=== PATIENT | female | born 1955 | race Two or more races ===

== ENCOUNTER 2017-06-01 06:15 | Day surgery (SDC) | payer OTHER ==
[~2017-06-01 06:15] MED LIST: LIPITOR20 MG; LOTREL 5-10 MG1 CAP; OMEPRAZOLE20 M1
== END 2017-06-01 11:50 | disposition home or self-care (01) ==
LOC: AMB-ENDOS 06:15
DX: K29.50 Unspecified chronic gastritis without bleeding (principal); K64.1 Second degree hemorrhoids; K57.30 Diverticulosis of large intestine without perforation or abscess without bleeding; E78.00 Pure hypercholesterolemia, unspecified; I10 Essential (primary) hypertension; K62.3 Rectal prolapse

== ENCOUNTER 2019-06-23 11:25 | Outpatient (CLI) | payer OTHER | END 2019-06-23 11:32 | disposition home or self-care (01) | LOC: SONOGRAMA 11:25 | DX: E04.1 Nontoxic single thyroid nodule (principal) ==

== ENCOUNTER 2021-04-28 11:15 | Inpatient (IN) | payer OTHER ==
[~2021-04-28] VITALS: Ht 160 cm; Wt 61.2 kg
[2021-04-28] MEDS ORDERED: LOTREL 5-10 MG1 CAP PO (13:37)
[2021-04-28] MEDS ORDERED: SIMVAST PO (13:38)
[2021-04-28] MEDS ORDERED: PROTONIX40 MG PO (13:38)
[2021-04-28] MEDS ORDERED: PEPCID AC20 MG PO (13:38)
[2021-04-28] MEDS ORDERED: TRICOR145 MG PO (13:39)
[2021-05-03] MEDS ORDERED: DORZOLAMIDE-TIM10 ML (11:09)
[2021-05-03] MEDS ORDERED: LATANOPROST2.5 ML (11:09)
[2021-05-03] MEDS ORDERED: SIMVASTATIN40 MG (11:09)
[2021-05-03] MEDS ORDERED: DOCUSATE CALCI240 MG (11:09)
[2021-05-03] MEDS ORDERED: ZANAFLEX2 MG (11:09)
[2021-05-03] MEDS ORDERED: AMLODIPINE BESYL5 MG (11:09)
== END 2021-05-06 09:03 | disposition home or self-care (01) | DRG 330 ==
LOC: SURH 05-03 07:00 → O/R 05-03 07:40 → SURH 05-03 11:15
PROVIDERS: ADMIT Colon & Rectal Surgery; ATTEND Colon & Rectal Surgery
PROC: 0DBP4ZZ Excision of Rectum, Percutaneous Endoscopic Approach (ICD-10-PCS; 2021-05-03)
PROC: 0DTN4ZZ Resection of Sigmoid Colon, Percutaneous Endoscopic Approach (ICD-10-PCS; principal; 2021-05-03 07:00)
DX: K57.30 Diverticulosis of large intestine without perforation or abscess without bleeding (principal); K92.1 Melena; K51.40 Inflammatory polyps of colon without complications; J45.20 Mild intermittent asthma, uncomplicated; I11.9 Hypertensive heart disease without heart failure; I12.9 Hypertensive chronic kidney disease with stage 1 through stage 4 chronic kidney disease, or unspecified chronic kidney disease; N18.30 Chronic kidney disease, stage 3 unspecified

== ENCOUNTER 2021-06-24 08:45 | Outpatient (CLI) | payer OTHER ==
[~2021-06-24 08:45] MED LIST changes: +AMLODIPINE BESYL5 MG; +DOCUSATE CALCI240 MG; +DORZOLAMIDE-TIM10 ML; +LATANOPROST2.5 ML; +LOTREL 5-10 MG1 CAP PO; +PEPCID AC20 MG PO; +PROTONIX40 MG PO; +SIMVAST PO; +SIMVASTATIN40 MG; +TRICOR145 MG PO; +ZANAFLEX2 MG
== END 2021-06-24 08:48 | disposition home or self-care (01) ==
LOC: LAB 08:45
PROVIDERS: ATTEND Colon & Rectal Surgery
DX: K57.32 Diverticulitis of large intestine without perforation or abscess without bleeding (principal)

== ENCOUNTER 2021-06-27 07:12 | Outpatient (CLI) | payer OTHER | END 2021-06-27 07:26 | disposition home or self-care (01) | LOC: TOM 07:12 | PROVIDERS: ATTEND Colon & Rectal Surgery | DX: K57.32 Diverticulitis of large intestine without perforation or abscess without bleeding (principal) | CPT/HCPCS: 74177; Q9965 ==

== ENCOUNTER 2021-07-01 12:52 | Inpatient (IN) | payer OTHER ==
[~2021-07-01] VITALS: Ht 157.5 cm; Wt 56.7 kg
[2021-07-01] MEDS ORDERED: METRONIDAZOLE500 MG PO (13:49)
[2021-07-01] MEDS ORDERED: CIPROFLOXACIN500 MG PO (13:49)
--- NOTE | 2021-07-01 13:49 | NUR ---
PTE REFIERE QUE FUE OPERADA POR EL DR, TOUS DE DIVERTICULOS Y DESDE ENTONCE MCKEON TENIDO MUCHO DOLOR EN EL AREA DE LA OPERACION ,PTE LE NOTIFICA A EL DR, TOUS DE LOS MORGAN Y EL MEDICO LE REFIERE QUE VINIERA A LA SANJUANA DE EMERGENCIA PARA TRATARLA.
--- NOTE | 2021-07-01 16:17 | NUR ---
EVALUA PTE. SE EDUCA A PTE SOBRE [place] MEDICO LA CUAL REFIERE COMPRENDER. SE COLECTAN MUESTRAS DE LABORATORIO BAJO MEDIDAS ASEPTICAS. PTE MANEJADA POR .
== END 2021-07-10 15:06 | disposition home or self-care (01) | DRG 372 ==
LOC: ER 12:52 → SURG 16:46 → SURH 16:46
PROVIDERS: ADMIT Internal Medicine Geriatric Medicine; ATTEND Internal Medicine Geriatric Medicine
PROC: 02HV33Z Insertion of Infusion Device into Superior Vena Cava, Percutaneous Approach (ICD-10-PCS; 2021-07-02)
PROC: BW21YZZ Computerized Tomography (CT Scan) of Abdomen and Pelvis using Other Contrast (ICD-10-PCS; principal; 2021-07-03)
DX: A04.72 Enterocolitis due to Clostridium difficile, not specified as recurrent (principal); K51.30 Ulcerative (chronic) rectosigmoiditis without complications; K59.09 Other constipation; R10.9 Unspecified abdominal pain; I10 Essential (primary) hypertension; I12.9 Hypertensive chronic kidney disease with stage 1 through stage 4 chronic kidney disease, or unspecified chronic kidney disease; N18.30 Chronic kidney disease, stage 3 unspecified

== ENCOUNTER 2021-08-10 10:59 | Emergency (ER) | payer OTHER ==
[~2021-08-10] VITALS: Ht 160 cm; Wt 54.4 kg
[~2021-08-10 10:59] MED LIST changes: +CIPROFLOXACIN500 MG PO; +METRONIDAZOLE500 MG PO
[2021-08-10] MEDS ORDERED: BENTYL10 MG/1 ML IM (11:41)
== END 2021-08-10 18:37 | disposition home or self-care (01) ==
LOC: ER 10:59
DX: R10.84 Generalized abdominal pain (principal); K59.00 Constipation, unspecified; Z98.890 Other specified postprocedural states; I10 Essential (primary) hypertension; Z88.0 Allergy status to penicillin; Z88.1 Allergy status to other antibiotic agents; Z88.8 Allergy status to other drugs, medicaments and biological substances

== ENCOUNTER 2021-09-20 05:38 | Day surgery (SDC) | payer OTHER ==
[~2021-09-20 05:38] MED LIST changes: +BENTYL10 MG/1 ML IM
== END 2021-09-20 09:30 | disposition home or self-care (01) ==
LOC: AMB-ENDOS 05:38
PROVIDERS: ATTEND Colon & Rectal Surgery
DX: K52.89 Other specified noninfective gastroenteritis and colitis (principal); Z20.822 Contact with and (suspected) exposure to COVID-19; K57.30 Diverticulosis of large intestine without perforation or abscess without bleeding; I11.9 Hypertensive heart disease without heart failure; J45.909 Unspecified asthma, uncomplicated; N18.30 Chronic kidney disease, stage 3 unspecified; K62.89 Other specified diseases of anus and rectum; K64.0 First degree hemorrhoids

== ENCOUNTER 2022-03-19 16:57 | Emergency (ER) | payer OTHER ==
[~2022-03-19] VITALS: Ht 160 cm; Wt 54.4 kg
== END 2022-03-20 01:07 | disposition home or self-care (01) ==
LOC: ER 16:57
DX: K52.9 Noninfective gastroenteritis and colitis, unspecified (principal); I10 Essential (primary) hypertension; Z88.0 Allergy status to penicillin; Z88.8 Allergy status to other drugs, medicaments and biological substances

== ENCOUNTER 2022-08-16 05:39 | Day surgery (SDC) | payer OTHER | END 2022-08-16 11:10 | disposition home or self-care (01) | LOC: AMB-ENDOS 05:39 | PROVIDERS: ATTEND Colon & Rectal Surgery | DX: K62.4 Stenosis of anus and rectum (principal); K57.32 Diverticulitis of large intestine without perforation or abscess without bleeding; K64.1 Second degree hemorrhoids; K92.1 Melena; Z88.0 Allergy status to penicillin; Z88.8 Allergy status to other drugs, medicaments and biological substances; Z20.822 Contact with and (suspected) exposure to COVID-19 ==

== ENCOUNTER 2022-08-18 08:24 | Inpatient (IN) | payer OTHER ==
[~2022-08-18] VITALS: Ht 160 cm; Wt 55.3 kg
[2022-09-08] MEDS ORDERED: INTESTINEX680 M1 PO (11:31)
[2022-09-08] MEDS ORDERED: KETO10TA2 PO ×2 (11:31)
[2022-09-08] MEDS ORDERED: PEPCID AC20 MG PO (11:31)
[2022-09-11] MEDS ORDERED: INTESTINEX680 M1 PO (08:58)
[2022-09-11] MEDS ORDERED: KETO10TA2 PO (08:58)
[2022-09-11] MEDS ORDERED: PEPCID AC20 MG PO (08:58)
== END 2022-09-11 14:00 | disposition home or self-care (01) | DRG 907 ==
LOC: ER 08:24 → SEC-K 12:11 → SURH 12:11 → SURG 12:11 → SURH 08-29 23:30 → SURG 08-30 13:46
PROVIDERS: ADMIT Colon & Rectal Surgery; ATTEND Colon & Rectal Surgery
PROC: BW21ZZZ Computerized Tomography (CT Scan) of Abdomen and Pelvis (ICD-10-PCS; 2022-08-18)
PROC: 02HV33Z Insertion of Infusion Device into Superior Vena Cava, Percutaneous Approach (ICD-10-PCS; 2022-08-20)
PROC: BW21ZZZ Computerized Tomography (CT Scan) of Abdomen and Pelvis (ICD-10-PCS; 2022-08-23)
PROC: 0W9J30Z Drainage of Pelvic Cavity with Drainage Device, Percutaneous Approach (ICD-10-PCS; 2022-08-24)
PROC: BW21ZZZ Computerized Tomography (CT Scan) of Abdomen and Pelvis (ICD-10-PCS; 2022-08-28)
PROC: 0D1L4Z4 Bypass Transverse Colon to Cutaneous, Percutaneous Endoscopic Approach (ICD-10-PCS; principal; 2022-08-30 12:45)
PROC: BW21ZZZ Computerized Tomography (CT Scan) of Abdomen and Pelvis (ICD-10-PCS; 2022-09-04)
PROC: BT141ZZ Fluoroscopy of Kidneys, Ureters and Bladder using Low Osmolar Contrast (ICD-10-PCS; 2022-09-06)
DX: K91.872 Postprocedural seroma of a digestive system organ or structure following a digestive system procedure (principal); K56.2 Volvulus; K63.1 Perforation of intestine (nontraumatic); N73.3 Female acute pelvic peritonitis; K91.89 Other postprocedural complications and disorders of digestive system; Z16.12 Extended spectrum beta lactamase (ESBL) resistance; N32.1 Vesicointestinal fistula; B96.20 Unspecified Escherichia coli [E. coli] as the cause of diseases classified elsewhere; K62.4 Stenosis of anus and rectum; K52.9 Noninfective gastroenteritis and colitis, unspecified; Z90.49 Acquired absence of other specified parts of digestive tract; I10 Essential (primary) hypertension

== ENCOUNTER 2022-10-12 07:28 | Outpatient (CLI) | payer OTHER ==
[~2022-10-12 07:28] MED LIST changes: +INTESTINEX680 M1 PO; +KETO10TA2 PO
== END 2022-10-12 07:31 | disposition home or self-care (01) ==
LOC: RX STUDY 07:28
PROVIDERS: ATTEND Colon & Rectal Surgery
DX: N32.1 Vesicointestinal fistula (principal)

== ENCOUNTER 2022-12-06 06:30 | Emergency (ER) | payer OTHER ==
[~2022-12-06] VITALS: Ht 160 cm; Wt 51.7 kg
[2022-12-06 09:06] LABS: HEMATOCRIT 30.7 % (36.0-45.00); HEMOGLOBIN 10.4 g/dL (12.0-15.00); MEAN CELL VOLUME 88.1 fL (80.00-100.00); MEAN CORPUSCULAR HEMOGLOBIN 29.8 pg (27.00-32.0); MEAN CORPUSCULAR HGB CONC 33.9 g/dl (32.0-36.0); PLATELET COUNT 262 K/uL (150-450); RED BLOOD COUNT 3.49 M/uL (4.00-6.00); RED CELL DISTRIBUTION WIDTH 13.7 % (11.5-14.5)
[2022-12-06 09:32] LABS: ALBUMIN 4.3 gm/dL (3.4-5.0); BILIRUBIN TOTAL 0.58 mg/dL (0.3-1.2); BILIRUBIN,CONJUGATED 0.17 mg/dL (0.0-0.2); BILIRUBIN,UNCONJUGATED 0.41 mg/dL (0.0-0.6); CALCIUM 9.8 mg/dL (8.5-10.1); CREATININE SERUM 2.09 mg/dL (0.55-1.02); GFR 23.48; POTASSIUM 4.78 mEq/L (3.5-5.1); TOTAL PROTEIN 8.8 gm/dL (6.4-8.2)
[2022-12-06 09:46] LABS: PH,URINE 5.5 (5.0-8.0); URINE APPEARANCE Clear; URINE BILIRRUBIN Negative (NEGATIVE); URINE BLOOD Negative; URINE COLOR Yellow; URINE GLUCOSE Negative (NEGATIVE); URINE LEUKOCYTE Negative; URINE NITRATE Negative; URINE PROTEIN Trace (NEGATIVE); URINE UROBILINOGEN 0.2 E.U./dl
[2022-12-06 09:51] LABS: URINE BACTERIA 25.1 uL (0.0-1933); URINE EPITHELIAL CELLS 5.2 uL (0.0-38.8); URINE RBC 2.2 uL (0.0-20.8); URINE WBC 2.9 uL (0.0-23.2)
[2022-12-06 12:02] LABS: ABG pCO2 40.8 mmHg (35-45); BASE EXCESS -12.2 mmol/l; BICARBONATE 15.4 mmol/l (23-25); Tco2 16.7 mmol/l
[2022-12-06 12:46] LABS: ABG PH 7.194 (7.35-7.45); ABG PO2 26.9 mmHg (80-100); o2 21 %; puncture site RADIAL RIGHT
[2022-12-06 12:47] LABS: allen test SATISFACTORY
== END 2022-12-06 12:54 | disposition home or self-care (01) ==
LOC: ER 06:30
PROVIDERS: General Practice
DX: R10.30 Lower abdominal pain, unspecified (principal); Z93.2 Ileostomy status; Z88.0 Allergy status to penicillin; Z88.8 Allergy status to other drugs, medicaments and biological substances

== ENCOUNTER 2023-01-10 11:09 | Inpatient (IN) | payer OTHER ==
[~2023-01-10] VITALS: Ht 160 cm; Wt 52.6 kg
[2023-01-10] MEDS ORDERED: PEPCID PO (11:44)
[2023-01-10] MEDS ORDERED: PROTONIX40 MG PO (11:45)
[2023-01-17 11:53] LABS: HEMATOCRIT 26.3 % (36.0-45.00); HEMOGLOBIN 9.1 g/dL (12.0-15.00); MEAN CELL VOLUME 87.6 fL (80.00-100.00); MEAN CORPUSCULAR HEMOGLOBIN 30.3 pg (27.00-32.0); MEAN CORPUSCULAR HGB CONC 34.6 g/dl (32.0-36.0); PLATELET COUNT 190 K/uL (150-450); RED CELL DISTRIBUTION WIDTH 12.6 % (11.5-14.5)
[2023-01-18] MEDS ORDERED: LATANOPROST2.5 ML (06:03)
[2023-01-18] MEDS ORDERED: DORZOLAMIDE-TIM10 ML (06:03)
[2023-01-18] MEDS ORDERED: SUCRALFATE1 GM (06:04)
[2023-01-18] MEDS ORDERED: FAMOTIDINE40 MG (06:04)
[2023-01-18 08:03] LABS: MEAN CELL VOLUME 87.9 fL (80.00-100.00); MEAN CORPUSCULAR HGB CONC 35.5 g/dl (32.0-36.0); PLATELET COUNT 159 K/uL (150-450); RED BLOOD COUNT 2.65 M/uL (4.00-6.00); RED CELL DISTRIBUTION WIDTH 12.5 % (11.5-14.5)
[2023-01-18 08:06] LABS: HEMATOCRIT 23.3 % (36.0-45.00); HEMOGLOBIN 8.3 g/dL (12.0-15.00); MEAN CORPUSCULAR HEMOGLOBIN 31.3 pg (27.00-32.0)
[2023-01-18 08:22] LABS: ALBUMIN 2.6 gm/dL (3.4-5.0); CALCIUM 8.3 mg/dL (8.5-10.1); CREATININE SERUM 1.13 mg/dL (0.55-1.02); GFR 47.74; MAGNESIUM 1.6 mg/dL (1.8-2.4); PHOSPHOROUS 3.5 mg/dL (2.5-4.9); POTASSIUM 3.27 mEq/L (3.5-5.1)
[2023-01-19 07:45] LABS: HEMATOCRIT 23.8 % (36.0-45.00); MEAN CELL VOLUME 88.5 fL (80.00-100.00); MEAN CORPUSCULAR HEMOGLOBIN 30.4 pg (27.00-32.0); MEAN CORPUSCULAR HGB CONC 34.3 g/dl (32.0-36.0); PLATELET COUNT 177 K/uL (150-450); RED BLOOD COUNT 2.69 M/uL (4.00-6.00); RED CELL DISTRIBUTION WIDTH 12.6 % (11.5-14.5)
[2023-01-19 07:56] LABS: HEMOGLOBIN 8.2 g/dL (12.0-15.00)
[2023-01-19 08:24] LABS: CALCIUM 8.8 mg/dL (8.5-10.1); CREATININE SERUM 1.18 mg/dL (0.55-1.02); GFR 45.42; MAGNESIUM 2.3 mg/dL (1.8-2.4); POTASSIUM 3.55 mEq/L (3.5-5.1)
[2023-01-19 09:14] LABS: PHOSPHOROUS 1.9 mg/dL (2.5-4.9)
== END 2023-01-19 13:38 | disposition home or self-care (01) | DRG 348 ==
LOC: O/R 01-17 05:22 → SURH 01-17 05:22 → SURG 01-17 11:30 → SURH 01-17 15:34
PROVIDERS: Internal Medicine Geriatric Medicine; ADMIT Colon & Rectal Surgery; ATTEND Colon & Rectal Surgery
PROC: 0DBB4ZZ Excision of Ileum, Percutaneous Endoscopic Approach (ICD-10-PCS; principal; 2023-01-17 11:30)
DX: Z43.2 Encounter for attention to ileostomy (principal); K57.32 Diverticulitis of large intestine without perforation or abscess without bleeding; K92.1 Melena; K62.4 Stenosis of anus and rectum; N73.6 Female pelvic peritoneal adhesions (postinfective); N99.4 Postprocedural pelvic peritoneal adhesions; N18.9 Chronic kidney disease, unspecified

== ENCOUNTER 2023-01-23 15:42 | Inpatient (IN) | payer OTHER ==
[~2023-01-23] VITALS: Ht 160 cm; Wt 52.6 kg
[~2023-01-23 15:42] MED LIST changes: +FAMOTIDINE40 MG; +PEPCID PO; +SUCRALFATE1 GM
[2023-01-23 17:24] LABS: MEAN CELL VOLUME 89.9 fL (80.00-100.00); MEAN CORPUSCULAR HGB CONC 34.6 g/dl (32.0-36.0); PLATELET COUNT 194 K/uL (150-450); RED BLOOD COUNT 2.43 M/uL (4.00-6.00); RED CELL DISTRIBUTION WIDTH 12.9 % (11.5-14.5)
[2023-01-23 17:25] LABS: HEMATOCRIT 21.9 % (36.0-45.00); MEAN CORPUSCULAR HEMOGLOBIN 31.2 pg (27.00-32.0)
[2023-01-23 17:26] LABS: HEMOGLOBIN 7.6 g/dL (12.0-15.00)
[2023-01-23 17:36] LABS: CALCIUM 8.5 mg/dL (8.5-10.1); CREATININE SERUM 1.18 mg/dL (0.55-1.02); GFR 45.42; POTASSIUM 3.48 mEq/L (3.5-5.1)
[2023-01-24 01:39] LABS: PH,URINE 5.5 (5.0-8.0); URINE APPEARANCE Cloudy; URINE BILIRRUBIN Negative (NEGATIVE); URINE BLOOD Trace; URINE COLOR Yellow; URINE GLUCOSE Negative (NEGATIVE); URINE LEUKOCYTE Large; URINE NITRATE Negative; URINE PROTEIN Negative (NEGATIVE); URINE UROBILINOGEN 0.2 E.U./dl
[2023-01-24 01:43] LABS: URINE EPITHELIAL CELLS 13.2 uL (0.0-38.8); URINE WBC 821.4 uL (0.0-23.2)
[2023-01-24 01:55] LABS: URINE BACTERIA > 9821.2 uL (0.0-1933)
[2023-01-24 01:56] LABS: URINE EPITHELIAL CELLS 0-4 /HPF
[2023-01-24 18:05] LABS: HEMATOCRIT 33.4 % (36.0-45.00); HEMOGLOBIN 11.4 g/dL (12.0-15.00); MEAN CORPUSCULAR HEMOGLOBIN 30.9 pg (27.00-32.0); MEAN CORPUSCULAR HGB CONC 34.3 g/dl (32.0-36.0); PLATELET COUNT 224 K/uL (150-450); RED BLOOD COUNT 3.71 M/uL (4.00-6.00); RED CELL DISTRIBUTION WIDTH 13.7 % (11.5-14.5)
[2023-01-25 06:35] LABS: HEMATOCRIT 30.2 % (36.0-45.00); HEMOGLOBIN 10.5 g/dL (12.0-15.00); MEAN CELL VOLUME 88.5 fL (80.00-100.00); MEAN CORPUSCULAR HEMOGLOBIN 30.8 pg (27.00-32.0); MEAN CORPUSCULAR HGB CONC 34.9 g/dl (32.0-36.0); PLATELET COUNT 185 K/uL (150-450); RED BLOOD COUNT 3.41 M/uL (4.00-6.00); RED CELL DISTRIBUTION WIDTH 13.6 % (11.5-14.5)
[2023-01-25 07:13] LABS: CALCIUM 8.2 mg/dL (8.5-10.1); CREATININE SERUM 1.16 mg/dL (0.55-1.02); GFR 46.32; MAGNESIUM 1.5 mg/dL (1.8-2.4); PHOSPHOROUS 3.6 mg/dL (2.5-4.9); POTASSIUM 3.6 mEq/L (3.5-5.1)
[2023-01-25] MEDS ORDERED: CIPRO500 MG PO (14:26)
[2023-01-25] MEDS ORDERED: FUSION PLUS CA1 EACH PO (14:26)
[2023-01-25] MEDS ORDERED: ABANEU-SL TABL1 EACH SL (14:26)
[2023-01-25] MEDS ORDERED: INTESTINEX680 M2 PO (14:26)
== END 2023-01-25 17:14 | disposition home or self-care (01) | DRG 812 ==
LOC: ER 15:42 → SEC-K 21:16 → SURH 21:16
PROVIDERS: Emergency Medicine; ADMIT Internal Medicine Geriatric Medicine; ATTEND Internal Medicine Geriatric Medicine
PROC: 30233N1 Transfusion of Nonautologous Red Blood Cells into Peripheral Vein, Percutaneous Approach (ICD-10-PCS; principal; 2023-01-24)
DX: D64.89 Other specified anemias (principal); N18.30 Chronic kidney disease, stage 3 unspecified; Z43.2 Encounter for attention to ileostomy

== ENCOUNTER 2023-11-25 09:05 | Emergency (ER) | payer OTHER ==
[~2023-11-25] VITALS: Ht 160 cm; Wt 55.8 kg
[~2023-11-25 09:05] MED LIST changes: +ABANEU-SL TABL1 EACH SL; +CIPRO500 MG PO; +FUSION PLUS CA1 EACH PO; +INTESTINEX680 M2 PO
[2023-11-25] MEDS ORDERED: ZOFRAN8 MG (09:13)
[2023-11-25] MEDS ORDERED: DICY20TA PO (09:14)
[2023-11-25] MEDS ORDERED: ONDANSETRON HCL 2 MG/ML VIAL IV ONE (09:45)
[2023-11-25] MEDS ORDERED: KETOROLAC TROMETHAMINE 60 MG VIAL IM ONE (09:45)
[2023-11-25] MEDS ORDERED: PANTOPRAZOLE SODIUM 40 MG/VIAL VIAL IV ONE (09:45)
[2023-11-25] MEDS ORDERED: 0.9 % SODIUM CHLORIDE 1,000 ML IV ONE (09:45)
[2023-11-25 10:13] LABS: HEMATOCRIT 32.2 % (36.0-45.00); MEAN CELL VOLUME 86.5 fL (80.00-100.00); MEAN CORPUSCULAR HEMOGLOBIN 29.5 pg (27.00-32.0); MEAN CORPUSCULAR HGB CONC 34.1 g/dl (32.0-36.0); PLATELET COUNT 173 K/uL (150-450); RED BLOOD COUNT 3.72 M/uL (4.00-6.00); RED CELL DISTRIBUTION WIDTH 13.3 % (11.5-14.5)
[2023-11-25 10:30] LABS: INR 1.02; PARTIAL THROMBOPLASTIN TIME 28.4 SECONDS (22.0-34.0); PROTHROMBIN TIME 11.1 SECONDS (9.0-11.5)
[2023-11-25 10:34] LABS: ALBUMIN 3.8 gm/dL (3.4-5.0); BILIRUBIN TOTAL 1.11 mg/dL (0.3-1.2); CALCIUM 9.3 mg/dL (8.5-10.1); CREATININE SERUM 1.25 mg/dL (0.55-1.02); GFR 42.37; GLOBULINA 3.9 G/DL (2.4-3.5); POTASSIUM 3.89 mEq/L (3.5-5.1); TOTAL PROTEIN 7.7 gm/dL (6.4-8.2)
[2023-11-25 10:55] LABS: PH,URINE 5.5 (5.0-8.0); URINE APPEARANCE Clear; URINE BILIRRUBIN Negative (NEGATIVE); URINE BLOOD Negative; URINE COLOR Yellow; URINE GLUCOSE Negative (NEGATIVE); URINE KETONE Negative (NEGATIVE); URINE LEUKOCYTE Trace; URINE NITRATE Negative; URINE PROTEIN Negative (NEGATIVE); URINE UROBILINOGEN 0.2 E.U./dl
[2023-11-25 10:56] LABS: URINE BACTERIA 27.7 uL (0.0-1933); URINE CAST 5.95 uL (0.0-1.40); URINE EPITHELIAL CELLS 13.5 uL (0.0-38.8); URINE RBC 4.8 uL (0.0-20.8)
[2023-11-25] MEDS ORDERED: KETOROLAC TROMETHAMINE 30 MG VIAL IV ONE (15:30)
== END 2023-11-25 19:25 | disposition home or self-care (01) ==
LOC: ER 09:06
PROVIDERS: General Practice
DX: K52.9 Noninfective gastroenteritis and colitis, unspecified (principal); I10 Essential (primary) hypertension; E11.9 Type 2 diabetes mellitus without complications; Z88.0 Allergy status to penicillin; Z88.8 Allergy status to other drugs, medicaments and biological substances
CPT/HCPCS: 36415; 71045; 74176; 93005; 96365; 96366; 96372; 99284; J1885 ×2; J2405; J3490; J7030